=== PATIENT | female | born 1940 | race Caucasian/White ===

== ENCOUNTER 2021-07-18 17:04 | Inpatient (IN) | payer MEDICARE ==
[2021-07-18] VITALS (13 sets, daily range): BP systolic 122–136; BP diastolic 72–84
[~2021-07-18] VITALS: Ht 157.5 cm; Wt 45.0 kg
[~2021-07-18 17:04] MED LIST: BENADRYL 50MG C50 MG OR; BENADRYL1 CRE EX; NO HOME MEDS; PATANOL0.1 % OP; XANAX0.25 MG OR
--- NOTE | 2021-07-18 17:34 | NUR ---
PT ESCORTED VIA WHEELCHAIR TO ROOM 8 FOR EVAL OF WEAKNESS AND RAPID HEART RATE
[2021-07-18 17:46] LABS: HEMATOCRIT 30.5 % (37.0-47.0); IMMATURE GRANULOCYTES 5.6 % (0.0-5.0); MEAN CELL VOLUME 83.3 fL CALC (80.0-100.0); MEAN CORPUSCULAR HGB 27.3 pG CALC (26.0-32.0); MEAN CORPUSCULAR HGB CONC 32.8 g/dL CAL (32.0-36.0); NEUT# 7.27 thou/uL (2.00-7.15); RED BLOOD COUNT 3.66 mill/uL (4.20-5.60); RED CELL DISTRI WIDTH 15.6 % (11.5-15.5)
[2021-07-18 18:15] LABS: PROTHROMBIN TIME 10.2 SECONDS (9.0-12.5)
[2021-07-18 18:17] LABS: ALBUMIN 3.3 g/dL (3.2-5.0); ALKALINE PHOSPHATASE 79 u/l (38-126); ANION GAP 12 (6-22 (CALC)); BILIRUBIN, TOTAL 0.4 mg/dL (0.0-1.4); BUN 12 mg/dL (8-23); BUN/CREATININE RATIO 16 (12-20 (CALC)); CARBON DIOXIDE 28 mmol/l (22-30); CHLORIDE 98 mmol/l (95-108); CREATININE 0.7 mg/dL (0.5-1.0); GFR FOR AFR.AMER. > 60 ML/MIN (>=60 (CALC)); GFR OTHER RACES > 60 ML/MIN (>=60 (CALC)); POTASSIUM 3.7 mmol/l (3.5-5.1); SGOT/AST 20 u/l (9-36); SODIUM 133 mmol/l (137-146); TOTAL PROTEIN 6.5 g/dL (6.3-8.2)
[2021-07-18 18:28] LABS: MYOGLOBIN 31 ng/mL (0 - 62)
--- NOTE | 2021-07-18 19:15 | NUR ---
Jose Armando HALE BOWLING BALL MOLDER IN TO DISCUSS CODE STATUS WITH PT. PT EXPRESSES WISHES TO BE DNR. DNR PAPERWORK SIGNED BY PT AND DR. COLLINS.
--- NOTE | 2021-07-18 20:30 | NUR ---
PT ASSISTED TO RESTROOM TO VOID AND BACK TO STRETCHER.
--- NOTE | 2021-07-18 21:00 | NUR ---
TELEPHONE REPORT CALLED TO NURSE ON MS.
--- NOTE | 2021-07-18 21:55 | NUR ---
PT UP TO ROOM 278 VIA WC ON SPIRAL WINDER, ACCOMPANIED BY SCRIBING MACHINE OPERATOR.
--- NOTE | 2021-07-18 22:00 | NUR ---
PT WAS BROUGHT TO THE FLOOR IN A WHEEL CHAIR. PT IS A&o X 3, ON 2LNC, AND ON TELE. ADMISSION ASSESSMENT COMPLETED AT THIS TIME. PT HAD A FEW CRYING EPISODES BUT WAS RESOLVED WHEN I ASSURED HER THAT I AM HERE TO HELP GET HER BETTER. WILL CONTINUE TO MONITOR.
[2021-07-19] VITALS (8 sets, daily range): BP systolic 109–126; BP diastolic 52–68
--- NOTE | 2021-07-19 05:16 | NUR ---
RECEIVED A CALL FROM TELEMETRY REGARDING PT BEING OFF TELE. JODIE STATED THAT BECAUSE THERE WAS A CHANGE IN THE PT'D HR THE DOCTOR IS REQUESTING A STAT EKG. ORDERS WERE PLACED.
--- NOTE | 2021-07-19 08:00 | NUR ---
PATIENT AWAKE, ALERT, NO SIGNS OR SYMPTOMS OF DISTRESS NOTED OR VOICED.
[2021-07-19 10:10] LABS: ALBUMIN 2.9 g/dL (3.2-5.0); ALKALINE PHOSPHATASE 71 u/l (38-126); ANION GAP 10 (6-22 (CALC)); BILIRUBIN, TOTAL 0.4 mg/dL (0.0-1.4); BUN 12 mg/dL (8-23); BUN/CREATININE RATIO 18 (12-20 (CALC)); CARBON DIOXIDE 28 mmol/l (22-30); CHLORIDE 97 mmol/l (95-108); CREATININE 0.7 mg/dL (0.5-1.0); GFR FOR AFR.AMER. > 60 ML/MIN (>=60 (CALC)); GFR OTHER RACES > 60 ML/MIN (>=60 (CALC)); HEMATOCRIT 30.7 % (37.0-47.0); IMMATURE GRANULOCYTES 4.6 % (0.0-5.0); MAGNESIUM 1.8 mg/dL (1.6-2.3); MEAN CELL VOLUME 84.6 fL CALC (80.0-100.0); MEAN CORPUSCULAR HGB 27.5 pG CALC (26.0-32.0); MEAN CORPUSCULAR HGB CONC 32.6 g/dL CAL (32.0-36.0); NEUT# 8.75 thou/uL (2.00-7.15); POTASSIUM 3.1 mmol/l (3.5-5.1); RED BLOOD COUNT 3.63 mill/uL (4.20-5.60); RED CELL DISTRI WIDTH 15.7 % (11.5-15.5); SGOT/AST 22 u/l (9-36); SODIUM 132 mmol/l (137-146); TOTAL PROTEIN 5.9 g/dL (6.3-8.2)
[2021-07-19] MEDS ORDERED: NORVASC5 M1 PO (10:45)
[2021-07-19] MEDS ORDERED: KEPPRA500 M2 PO (10:45)
[2021-07-19] MEDS ORDERED: FAMOTIDINE20 M3 PO (10:46)
[2021-07-19] MEDS ORDERED: DEXAMETHASON4 MG PO (10:46)
--- NOTE | 2021-07-19 12:00 | NUR ---
PATIENT AWAKE, ALERT, NO SIGNS OR SYMPTOMS OF DISTRESS NOTED OR VOICED.
[2021-07-19] MEDS ORDERED: ALPRAZOLAM0.25 MG PO (15:08)
--- NOTE | 2021-07-19 16:35 | NUR ---
PATIENT ALERT, AWAKE, NO SIGNS OR SYMPTOMS OF DISTRESS NOTED OR VOICED.
--- NOTE | 2021-07-19 18:35 | NUR ---
PATIENT DAUGHTER AND SON CAME TO NURSES STATION AND STATED THAT THEY ARE SIGNING OUT PATIENT TO TAKE HER TO [facility]. I INFORMED THE NURSE AND CALLED MD AND NURSING SANDWICH BOARD CARRIER. I SPOKE WITH PATIENT AND SHE IS AOX3 AND AGREED TO BE SIGNED OUT AND WANTS TO GO [facility]. PATIENT SIGNED AMA FORM, PATIENT IS BEING WHEELED DOWN IN WHEELCHAIR AND PATIENT ADULT CHILDREN WILL TAKE OVER CARE FOR PATIENT.
== END 2021-07-19 18:43 | disposition left against medical advice (07) | DRG 181 ==
LOC: ED 17:04 → ED-I 19:03 → ED 19:22 → MS2 19:23
PROVIDERS: Nurse Practitioner; ADMIT Hospitalist; ATTEND Hospitalist
DX: C34.01 Malignant neoplasm of right main bronchus (principal); C78.7 Secondary malignant neoplasm of liver and intrahepatic bile duct; C79.31 Secondary malignant neoplasm of brain; R60.0 Localized edema; R53.1 Weakness; R09.02 Hypoxemia; I10 Essential (primary) hypertension; F17.200 Nicotine dependence, unspecified, uncomplicated; Z66 Do not resuscitate; Z20.822 Contact with and (suspected) exposure to COVID-19